=== PATIENT | male | born 1965 | race African-American/Black ===

== ENCOUNTER 2018-05-27 18:34 | Emergency (ER) | payer OTHER ==
[~2018-05-27] VITALS: Ht 185.4 cm; Wt 172.4 kg
--- NOTE | 2018-05-27 18:40 | NUR ---
arrived via [facility] after having near syncopal episode with changes in vision. States this is similar to an episode he had 6 months ago, where he was admitted and fully worked up. Placed in room 3. Placed on desk monitor, blood pressure machine and pulse oximeter. To gown for exam. Side rails up. Report given to Wesley NERI.
[2018-05-27 18:42] VITALS: BP_SYST 154
[2018-05-27] MEDS ORDERED: ONDANSETRON HCL 4 MG/2 ML VIAL IVP ONE (18:45)
[2018-05-27] MEDS ORDERED: NACL 0.9% 1,000 ML IV ONE ×2 (18:45→20:30)
[2018-05-27] MEDS ORDERED: ASPIRIN 81 MG TAB.CHEW PO ONE (18:45)
--- NOTE | 2018-05-27 18:50 | NUR ---
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 No complaint of n/v, dizzyness or chest pain. Pt is AAO x 4, speaks [place]ic and is cooperative.
--- NOTE | 2018-05-27 18:55 | NUR ---
ER Dr. Hoang at bedside examining patient.
--- NOTE | 2018-05-27 19:10 | NUR ---
1910 - Received report from HALLE Olson. 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 PT is A&XO4, states he feels a little "something" in his chest, described as a constant flutter, that occasionally worsens. Pt states that he only takes GI meds, and was on BP meds 4 months ago, but never followed up with his doctor to see if he needs to continue. Pt denies pain at this time. VSS.
--- NOTE | 2018-05-27 19:15 | NUR ---
1915 - Pt states he felt diaphoretic, feels like he needs to have BM. Pt's HR decreased from low 100s, to 70s. Pt is still awake, eyes closed. Episode lasted 5 minutes. 1919 - Pt reports improvement in symptoms.
[2018-05-27 19:45] LABS: BASOPHILS % (AUTO) 0.3 % (0.0-2.0); EOSINOPHILS # (AUTO) 0.2 K/uL (0.0-0.4); EOSINOPHILS % (AUTO) 1.1 % (0.0-4.0); HEMATOCRIT 40.2 % (36-54); HEMOGLOBIN 12.5 g/dL (14.0-18.0); LYMPHOCYTES # (AUTO) 3.7 K/uL (1.0-5.5); LYMPHOCYTES % (AUTO) 22.2 % (20.5-51.5); MEAN CORPUSCULAR HEMOGLOBIN 25 pg (27-31); MEAN CORPUSCULAR HGB CONC 31 % (32-36); MEAN CORPUSCULAR VOLUME 81 fL (79.0-98.0); MONOCYTES # (AUTO) 1.3 K/uL (0.0-1.0); MONOCYTES % (AUTO) 7.7 % (1.7-9.3); NEUTROPHILS # (AUTO) 11.4 K/uL (1.8-7.7); NEUTROPHILS % (AUTO) 68.7 % (40.0-70.0); PLATELET COUNT (AUTO) 316 K/uL (130-430); RED BLOOD CELL COUNT(AUTO) 4.99 MIL/uL (4.2-6.2); RED CELL DISTRIBUTION WIDTH 16.8 % (9.0-15.0); WHITE BLOOD COUNT (AUTO) 16.6 K/uL (4.8-10.8)
[2018-05-27 19:49] LABS: CREATININE 1.12 mg/dL (0.55-1.30); POTASSIUM 3.4 mmol/L (3.5-5.1)
[2018-05-27 19:50] LABS: PROTHROMBIN TIME 10.7 SECS (9.5-12.5)
[2018-05-27 19:53] LABS: ALBUMIN 2.9 g/dL (3.4-4.8); TOTAL BILIRUBIN 0.4 mg/dL (0.0-1.0)
[2018-05-27] MEDS ORDERED: RANI-362 PO (20:01)
[2018-05-27] MEDS ORDERED: OMEP20CA10 PO (20:01)
[2018-05-27] MEDS ORDERED: PIPERACILLIN/TAZO 3.375 GM in NS 50 ML IV ONE (20:30)
--- NOTE | 2018-05-27 20:30 | NUR ---
2030 - Pt resting comfortably in gurney, eyes closed, easily aroused to verbal stimuli no distress. BP improved. Will continue to monitor.
[2018-05-27] MEDS ORDERED: PIPERACILLIN/TAZOBACTAM 3.375 GM/VIAL (ZOSYN) IV ONE (20:37)
[2018-05-27 20:44] LABS: BILIRUBIN,URINE NEGATIVE (NEGATIVE); BLOOD, URINE NEGATIVE (NEGATIVE); CLARITY/URINE CLEAR (CLEAR); COLOR,URINE YELLOW (YELLOW); GLUCOSE,URINE NEGATIVE (NEGATIVE); KETONES,URINE NEGATIVE (NEGATIVE); LEUKOCYTE ESTERASE ,URINE NEGATIVE (NEGATIVE); NITRITE, URINE NEGATIVE (NEGATIVE); PH,URINE 5.5 (5.0-8.0); PROTEIN URINE 1+ (NEGATIVE); UROBILINOGEN,URINE 0.2 (0.2-1.0)
[2018-05-27 20:50] LABS: BACTERIA,URINE FEW /HPF (None Seen); HYALINE CASTS, URINE 0-10 /LPF (None Seen); RBC,URINE 0-3 /HPF (0-3); WBC,URINE 0-3 /HPF (0-3)
--- NOTE | 2018-05-27 22:20 | NUR ---
2220 - Pt ambulated w/ steady gait, no assistance. Pt denies CP, SOB, dizziness, or lightheadedness while ambulating.
[2018-05-27 22:41] VITALS: BP_SYST 141
--- NOTE | 2018-05-27 22:41 | NUR ---
2241 - Patient given written and verbal discharge instructions and verbalizes understanding. ER MD discussed with patient the results and treatment provided. Patient in stable condition. ID arm band removed. IV catheter removed intact and dressing applied, no active bleeding. Patient educated on pain management and to follow up with PMD. Pain Scale 0. Opportunity for questions provided and answered. Medication side effect fact sheet provided.
== END 2018-05-27 22:41 | disposition home or self-care (01) ==
LOC: SED 18:34
DX: D64.9 Anemia, unspecified (principal); R55 Syncope and collapse; E66.9 Obesity, unspecified; Z68.43 Body mass index [BMI] 50.0-59.9, adult; Z79.899 Other long term (current) drug therapy
CPT/HCPCS: 36415; 71045; 80053; 81000; 82550; 83605; 83690; 83880; 84484; 85025; 85379; 85610; 85730; 87040; 96361; 96365; 96375; 99284; J2405; J2543; J7030; 93005